=== PATIENT | male | born 1965 | race Two or more races ===

== ENCOUNTER 2024-02-29 06:15 | Day surgery (SDC) | payer MEDICAID, SELFPAY ==
--- NOTE | 2024-02-24 06:17 | EKG_ITS ---
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
[2024-02-24 07:31] VITALS: BMI 32.0
[2024-02-24 08:47] LABS: Collection Type, Urine Clean Catch
[2024-02-24 09:00] LABS: Basophils # (Auto) 0.1 Thou/mm3 (0.0-0.2); Basophils % (Auto) 2 % (0-2.5); Eosinophils # (Auto) 0.4 Thou/mm3 (0.0-0.5); Eosinophils % (Auto) 6 % (0-10); Hematocrit 47.4 % (41.0-53.0); Hemoglobin 16.8 g/dL (13.5-16.0); Immature Granulocytes % (Auto) 1 % (0-0); Immature Granulocytes Auto 0.03 Thou/mm3 (0.00-0.00); Lymphocytes # (Auto) 2.2 Thou/mm3 (1.0-4.8); Lymphocytes % (Auto) 36 % (10-50); Mean Corpuscular HGB Conc 35.4 g/dl (31.0-37.0); Mean Corpuscular Hemoglobin 30.2 pg (25.0-35.0); Mean Corpuscular Volume 85 fL (80-100); Monocytes # (Auto) 0.5 Thou/mm3 (0.0-0.8); Monocytes % (Auto) 8 % (0-12); Neutrophils # (Auto) 2.8 Thou/mm3 (1.8-7.7); Neutrophils % (Auto) 46 % (37-80); Nucleated Red Blood Cell % 0 /100 WBC (0); Platelet Count 194 Thou/mm3 (140-440); RDW Standard Deviation 37.2 fL (35.1-43.9); Red Blood Count 5.57 Miln/mm3 (4.50-5.90); White Blood Count 6.1 Thou/mm3 (3.8-10.6)
[2024-02-24 09:17] LABS: Alanine Aminotransferase 18 U/L (10-49); Albumin, Serum 4.6 gm/dL (3.5-5.0); Albumin/Globulin Ratio 1.6 (1.2-2.2); Alkaline Phosphatase 104 U/L (46-116); Anion Gap 7 (7-16); Aspartate Amino Transferase 20 U/L (0-34); BUN/Creatinine Ratio 11 Ratio (12-20); Bilirubin,Total 0.6 mg/dL (0.3-1.2); Blood Urea Nitrogen 10 mg/dL (9-23); Calcium 9.2 mg/dL (8.3-10.6); Calcium (Corrected) 9.2 mg/dL (8.5-10.1); Carbon Dioxide 28.7 mMol/L (20.0-31.0); Chloride 102 mMol/L (98-107); Creatinine (Component) 0.9 mg/dL (0.6-1.3); Estimated Creatinine Clearance 104.7 mL/min (>60); Globulin 2.8 gm/dL (2.3-3.5); Glucose 120 mg/dL (74-106); Osmolality,Calculated 275 (275-295); Potassium 3.9 mMol/L (3.4-5.1); Sodium 138 mMol/L (136-145); Total Protein 7.4 gm/dL (5.7-8.2); eGFR > 60 See Note
[2024-02-24 09:31] LABS: Bilirubin,Urine Negative (Negative); Blood,Urine Negative (Negative); Clarity,Urine Clear (Clear/Hazy); Color,Urine Yellow (Lt Yel-Yel); Glucose, Urine Negative (Negative); Hyaline Casts,Urine < 1 /hpf (0-1); Ketones,Urine Negative (Negative); Leukocyte Esterase,Urine Negative (Negative); Nitrite,Urine Negative (Negative); Protein,Urine Trace (Neg - Trace); RBC,Urine 3 /hpf (0-3); Squamous Epithelial Cell,Urine 3 /hpf (0-5); Urobilinogen,Urine Negative mg/dL (0.0-1.0); WBC,Urine 2 /hpf (0-5)
[2024-02-29] VITALS (8 sets, daily range): BP systolic 98–140; BP diastolic 69–87; PULSE 50–58; RESP 14–20; TEMP 36.6–37; O2SAT 95–98; BMI 32.4
[2024-02-29] MEDS: RINGERS LACTATED 1000 ML 1,000 ML 20 ML IV (06:58)
--- NOTE | 2024-02-29 09:36 | SUR.PHASEI ---
0936 Patient arrived to recovery resting comfortably in [facility], on oxygen 10L via oxy mask with an oral airway in place, breathing unlabored, vital signs stable, dressing intact to penis;antibiotic ointment, gauze, coban, silk tape, no bleeding noted, lung sounds clear upon auscultation, bilateral radial pulses present when palpated, report received from Juan FRANCOIS and Dr. Alfaro
--- NOTE | 2024-02-29 09:44 | ESHP_ITS ---
RE: HEATHER LAWSON : 1965 DATE OF ADMISSION: 02/29/2024 HISTORY OF PRESENT ILLNESS: The patient is a 58-year-old male Turkmen-speaking with a tight phimosis. It is hard for him to urinate. PAST SURGICAL HISTORY: Previous surgery is none. PAST MEDICAL HISTORY: There is no history of diabetes mellitus. No history of hypertension. SOCIAL HISTORY: The patient has three children. ALLERGIES: NONE KNOWN. HOME MEDICATIONS: None. PHYSICAL EXAMINATION: HEENT: Normal. NECK: Supple. LUNGS: Clear. CARDIOVASCULAR: Heart sounds are normal. ABDOMEN: Soft. GENITOURINARY: Phallus has tight phimosis. Testes are down in scrotum. IMPRESSION: Tight phimosis. PLAN: Circumcision. Planned procedure, risks and complications have been discussed with the patient. The patient has understood them and agreed to proceed. DT: 16:01:56 TT: 17:28:00 Ref: [id number] - TID: [id number]
--- NOTE | 2024-02-29 10:55 | SUR.PHASEII ---
1055 Patient meets discharge criteria from recovery, awake and alert, breathing unlabored, vital signs stable, denies pain, dressing intact; no bleeding noted, patient eating ice chips; denies nausea, patient assisted with dressing into his clothing by his , discharge instructions given with the assistance of the telephone environmental communications specialist Rajat ID#[id number] to patient and his , signed discharge instructions. Patient given all his belongings prior to discharge, transporter via wheelchair and left in a private vehicle.
--- NOTE | 2024-02-29 11:39 | ESOP_ITS ---
RE: HEATHER LAWOSN : 1965 DATE OF OPERATION: 02/29/2024 PREOPERATIVE DIAGNOSIS: Tight phimosis. POSTOPERATIVE DIAGNOSIS: Tight phimosis. PROCEDURE PERFORMED: Circumcision. ANESTHESIA: General. INDICATION: The patient is a 58-year-old male with a history of tight phimosis. He does not have any history of diabetes mellitus. It is hard for him to urinate. He is now scheduled to have circumcision. Planned procedure, risks and complications have been discussed with the patient. The patient has understood them and agreed to proceed. DESCRIPTION OF PROCEDURE: After the patient was brought to the operating table, under adequate general anesthesia and supine position, parts were prepped and draped in the usual fashion. Circumcision was then carried out in a standard fashion by excising the foreskin at the level of shah glandis. Complete hemostasis was obtained by using electrocoagulation. Skin was reapproximated back by placing interrupted sutures of 3-0 chromic catgut suture. Complete hemostasis was obtained. Local anesthetic was injected at the base of the penis. Sterile dressing was then applied. The patient was then transferred to the recovery room in a satisfactory condition, having tolerated the entire procedure well. Sponge count and needle count at the end of the procedure was found to be correct. Estimated blood loss was approximately 10 mL. DT: 11:10:49 TT: 11:38:00 Ref: [id number] - TID: [id number]
== END 2024-02-29 10:55 | disposition home or self-care (01) ==
PROVIDERS: Anesthesiology; PCP Family Medicine; Referring Provider Surgery; Visit Provider Surgery
PROC: (CPT 54161; principal; 2024-02-29 08:30)
DX: N47.1 Phimosis (principal); Z01.810 Encounter for preprocedural cardiovascular examination
CPT/HCPCS: 54161; 36415; 80048; 80053; 81001; 85025; 93005; A4217; A4649; J0690; J1100; J1885; J2250; J2405; J2704; J3010; J3490; J7120; A9270; J0665